=== PATIENT | male | born 1950 | race Caucasian/White ===

== ENCOUNTER 2021-09-27 12:20 | Emergency (ER) | payer MEDICARE, OTHER ==
[2021-09-27 13:30] LABS: #Basophils 0.1 thou/uL (0.0-0.2); #Lymphocytes 0.5 thou/uL (1.20-3.40); %Basophils 0.5 % (0.0-1.0); %Lymphocytes 2.6 % (21.0-51.0); %Monocytes 5.5 % (0.0-10.0); %Neutrophils 91.4 % (42.0-75.0); Hemoglobin 15.2 g/dL (14.0-18.0); Mean Corpuscular HGB CONC 32.6 g/dL (32.0-36.0); Mean Corpuscular Hemoglobin 29.3 pg (27.0-31.0); Mean Corpuscular Volume 89.9 fL (78.0-98.0); Mean Platelet Volume 6.8 fL (7.4-10.4); Platelet Count 478 thou/uL (130-400); RBC Distribution Width 13.3 % (11.5-14.5); Red Blood Cell (RBC) Count 5.21 mill/uL (4.70-6.10); White Blood Cell (WBC) Count 18.6 thou/uL (4.8-10.8)
[2021-09-27 13:43] LABS: ALT (SGPT) 123 U/L (8-55); AST (SGOT) 173 U/L (5-34); Albumin 2.9 g/dL (3.4-4.8); Alkaline Phosphatase 174 U/L (40-110); Anion Gap 21 mmol/L (10-20); Bilirubin, Total 2.3 mg/dL (0.2-1.2); Calc. Creatinine Clearance 0 mL/min (70-130); Calcium 8.9 mg/dL (7.8-10.44); Carbon Dioxide 16 mmol/L (23-31); Chloride 90 mmol/L (98-107); Globulin 3.7 g/dL (2.4-3.5); Glucose 182 mg/dL (83-110); Protein, Total 6.6 g/dL (5.8-8.1); Sodium 121 mmol/L (136-145)
[2021-09-27 13:44] LABS: Alcohol Less than 10 mg/dL (Less than 10); CK (CPK) 50 U/L (30-200)
[2021-09-27] MEDS ORDERED: Sodium Chloride 0.9% 1,000 ML ONE (13:50)
[2021-09-27 14:03] LABS: CKMB 6.1 ng/mL (0-6.6)
[2021-09-27] MEDS ORDERED: Calcium Chloride 1 GM/10 ML Abboject SYRINGE ONE (14:28)
[2021-09-27] MEDS ORDERED: Albuterol Sulfate 2.5 mg/0.5 ml Neb ONE (14:28)
[2021-09-27 14:47] LABS: BUN (Urea Nitrogen) 155 mg/dL (8.4-25.7)
[2021-09-27 15:03] LABS: Bilirubin Negative (Negative); Blood, Urine Negative (Negative); Clarity Clear (Clear); Glucose, Urine (Dipstick) Negative (Negative); Ketone, Urine Negative (Negative); Leukocyte Negative (Negative); Nitrite Negative (Negative); Protein, Urine (Dipstick) Trace mg/dL (Neg-Trace); Specific Gravity, Urine 1.025 (1.005-1.030); Urobilinogen 0.2 mg/dL (Less than 2)
[2021-09-27 15:16] LABS: Amphetamine Not Detected (NotDetected); Barbiturates Screen Not Detected (NotDetected); Benzodiazepine Screen Not Detected (NotDetected); Cocaine Metabolite Screen Not Detected (NotDetected); Medtox Control Line Valid? VALID (VALID); Methadone Not Detected (NotDetected); Methamphetamine Not Detected (NotDetected); Opiate Screen Not Detected (NotDetected); Oxycodone Screen Not Detected (NotDetected); Phencyclidine (PCP) Not Detected (NotDetected); THC/Cannabinoid Screen Not Detected (NotDetected); Tricyclic Screen Not Detected (NotDetected)
[2021-09-27 15:59] LABS: SARS-CoV-2 NAA Rapid Test Not Detected (NotDetected)
== END 2021-09-27 15:50 | disposition short-term general hospital (02) ==
LOC: MADERS 12:20
DX: E87.1 Hypo-osmolality and hyponatremia (principal); E86.0 Dehydration; N17.9 Acute kidney failure, unspecified; E87.5 Hyperkalemia; R41.82 Altered mental status, unspecified; R74.02 Elevation of levels of lactic acid dehydrogenase [LDH]; R94.39 Abnormal result of other cardiovascular function study; Z20.822 Contact with and (suspected) exposure to COVID-19; I13.2 Hypertensive heart and chronic kidney disease with heart failure and with stage 5 chronic kidney disease, or end stage renal disease; N18.6 End stage renal disease; I50.9 Heart failure, unspecified; E11.22 Type 2 diabetes mellitus with diabetic chronic kidney disease; E03.9 Hypothyroidism, unspecified; E78.5 Hyperlipidemia, unspecified; I48.91 Unspecified atrial fibrillation; J44.9 Chronic obstructive pulmonary disease, unspecified; Z86.73 Personal history of transient ischemic attack (TIA), and cerebral infarction without residual deficits; F17.220 Nicotine dependence, chewing tobacco, uncomplicated; Z79.82 Long term (current) use of aspirin; Z79.899 Other long term (current) drug therapy
CPT/HCPCS: 70450; 71045; 80053; 80306; 80307; 81003; 82140; 82550; 82553; 83605; 83880; 84484; 85025; 93005; U0002; 51701; 96365; J7050; J7611